=== PATIENT | male | born 1945 | race Caucasian/White ===

== ENCOUNTER 2017-03-23 13:11 | Inpatient (IN) | payer MEDICARE, BC ==
[~2017-03-23] VITALS: Ht 172.7 cm; Wt 73.5 kg
[2017-03-23] MEDS ORDERED: PIPER-TAZ 3.375 GM 50 ML IV STA (13:54)
[2017-03-23] MEDS ORDERED: VANCOMYCIN 1GM/NS 250 ML 250 ML IV STA (13:54)
[2017-03-23] MEDS ORDERED: ONDANSETRON HCL INJ 2 MG/ML VIAL IV PRN (14:15)
[2017-03-23] MEDS ORDERED: HYDROMORPHONE 1MG/1ML INJ IV PRN (14:15)
--- NOTE | 2017-03-23 15:31 | Diagnostic Imaging Report ---
PROCEDURE: A single AP view of the chest. COMPARISON: None. INDICATIONS: PAIN IN RIGHT LEG FINDINGS: Lines/tubes: None. Lungs: The lungs are well inflated and clear. There is no evidence of pneumonia or pulmonary edema. Pleura: There is no pleural effusion or pneumothorax. Heart and mediastinum: The heart and the mediastinum are unremarkable. Atherosclerotic calcification aortic arch. Bones: No acute bony abnormality. IMPRESSION: 1. No acute cardiopulmonary abnormalities. Tacos Couch M.D. Dictated by: Tacos Couch M.D. on 03/23/2017 at 15:38 Electronically approved by: Tacos Couch M.D. on 03/23/2017 at 15:38
[2017-03-23] MEDS: SODIUM CHLORIDE 0.9% 1000ML 1,000 ML IV SCH ×2 (17:00→21:00)
[2017-03-23] MEDS: CLINDAMYCIN PHOS IV SCH ×2 (17:05→21:00)
[2017-03-23] MEDS: SODIUM CHLORIDE 0.9% IV SCH ×2 (17:05→21:00)
[2017-03-23 17:23] LABS: BASOPHILS % 0.4 % (0.0-1.0); EOSINOPHILS # (AUTO) 0.4 (0.0-0.4); EOSINOPHILS % 3.9 % (0.0-6.0); HEMATOCRIT 33.2 % (38.2-49.6); HEMOGLOBIN 11.8 g/dL (14.0-18.0); LYMPHOCYTES # (AUTO) 1.5 (1.0-3.2); LYMPHOCYTES % 14.1 % (18.0-39.1); MEAN CORPUSCULAR HEMOGLOBIN 30.3 pg (28-32); MEAN CORPUSCULAR HGB CONC 35.5 g/dL (31-35); MEAN CORPUSCULAR VOLUME 85.1 fL (81-99); MONOCYTES # (AUTO) 1.1 (0.2-0.8); MONOCYTES % 10.4 % (4.4-11.3); NEUTROPHILS # (AUTO) 7.3 (2.1-6.9); NEUTROPHILS % 70.5 % (38.7-80.0); PLATELET COUNT 202 x10e3/uL (140-360); RED CELL DISTRIBUTION WIDTH 13.4 % (11.7-14.4)
[2017-03-23 17:45] LABS: ALANINE AMINOTRANSFERASE 52 IU/L (0-55); ALBUMIN 3.5 g/dL (3.5-5.0); ALBUMIN/GLOBULIN RATIO 0.7 (0.8-2.0); ALKALINE PHOSPHATASE 125 IU/L (40-150); ANION GAP 16.1 mmol/L (8-16); BLOOD UREA NITROGEN 6 mg/dL (7-26); BUN/CREATININE RATIO 8 (6-25); CALCIUM 9.3 mg/dL (8.4-10.2); CARBON DIOXIDE 23 mmol/L (22-29); CHLORIDE 86 mmol/L (98-107); CREATININE, SERUM 0.77 mg/dL (0.72-1.25); EST GLOMERULAR FILTRATION RATE > 60 ML/MIN (60-); GLUCOSE 100 mg/dL (74-118); POTASSIUM 4.1 mmol/L (3.5-5.1); SODIUM 121 mmol/L (136-145)
[2017-03-23] MEDS ORDERED: VITAMIN D31000 UNIT PO (18:52)
[2017-03-23] MEDS ORDERED: TEMAZEPAM15 MG PO (18:52)
[2017-03-23] MEDS ORDERED: CLINDAMYCIN HC300 MG PO (18:52)
[2017-03-23] MEDS ORDERED: ATORVASTATIN CA20 MG PO (18:52)
[2017-03-23] MEDS ORDERED: LOSARTAN POTAS100 MG PO (18:55)
[2017-03-23] MEDS ORDERED: GLIMEPIRIDE2 MG PO (18:55)
[2017-03-23] MEDS ORDERED: PREDNISONE10 MG PO (18:55)
[2017-03-23] MEDS ORDERED: PIPER-TAZ 3.375 GM 50 ML IV ONE (19:15)
[2017-03-23 19:37] LABS: BILIRUBIN,URINE NEGATIVE (NEGATIVE); CLARITY,URINE CLEAR (CLEAR); COLOR,URINE YELLOW (YELLOW); KETONES,URINE NEGATIVE (NEGATIVE); LEUKOCYTE ESTERASE ,URINE NEGATIVE (NEGATIVE); NITRITE,URINE NEGATIVE (NEGATIVE); URINE UROBILINOGEN 0.2 mg/dL (0.2 - 1)
[2017-03-23 19:41] LABS: PROTEIN,URINE DIPSTICK 2+ (NEGATIVE)
[2017-03-23] MEDS ORDERED: VANCOMYCIN 1GM/NS 250 ML 250 ML IV ONE (19:45)
[2017-03-23 19:48] LABS: MUCUS,URINE FEW (RARE); RBC,URINE 0-5 /HPF (0-5); WBC,URINE (MAN) 0-5 /HPF (0-5)
[2017-03-23] MEDS ORDERED: CLINDAMYCIN PHOS 300MG/2ML VIAL ONE (21:07)
[2017-03-23] MEDS ORDERED: SODIUM CHLORIDE 0.9% 250ML 250 ML ONE (21:07)
[2017-03-23] MEDS ORDERED: LABETALOL HCL IV 5 MG/ML 20ML MDV IV ONE (21:40)
[2017-03-24] VITALS (8 sets, daily range): BP systolic 106–203; BP diastolic 53–95
[2017-03-24] MEDS: CLINDAMYCIN PHOS IV SCH ×2 (00:45→06:38)
[2017-03-24] MEDS: SODIUM CHLORIDE 0.9% IV SCH ×2 (00:45→06:38)
[2017-03-24] MEDS: TEMAZEPAM 15 MG CAP PO SCH ×2 (02:00→22:13)
[2017-03-24] MEDS: SODIUM CHLORIDE 0.9% 1000ML 1,000 ML IV SCH (06:11)
[2017-03-24] MEDS ORDERED: LABETALOL HCL IV 5 MG/ML 20ML MDV IV STA (06:33)
[2017-03-24] MEDS: VANCOMYCIN 1GM/NS 250 ML 250 ML IV SCH ×2 (08:15→20:00)
[2017-03-24] MEDS ORDERED: DEXTROSE 50% SYRINGE 50 ML IV PRN (08:15)
[2017-03-24] MEDS: FAMOTIDINE 20 MG TAB PO SCH ×2 (08:15→16:30)
[2017-03-24] MEDS: LOSARTAN POTASSIUM 100 MG TAB PO SCH (09:00)
[2017-03-24] MEDS ORDERED: GLIMEPIRIDE 2 MG TAB PO SCH (09:00)
[2017-03-24] MEDS ORDERED: LOSARTAN POTASSIUM 100 MG TAB PO SCH (09:00)
[2017-03-24] MEDS: CARVEDILOL 12.5 MG TAB PO SCH ×2 (09:00→17:00)
[2017-03-24 09:13] LABS: BASOPHILS % 0.5 % (0.0-1.0); EOSINOPHILS # (AUTO) 0.3 (0.0-0.4); HEMATOCRIT 29.6 % (38.2-49.6); HEMOGLOBIN 10.6 g/dL (14.0-18.0); LYMPHOCYTES # (AUTO) 0.9 (1.0-3.2); LYMPHOCYTES % 13.8 % (18.0-39.1); MEAN CORPUSCULAR HEMOGLOBIN 30.2 pg (28-32); MEAN CORPUSCULAR HGB CONC 35.8 g/dL (31-35); MEAN CORPUSCULAR VOLUME 84.3 fL (81-99); MONOCYTES # (AUTO) 0.8 (0.2-0.8); MONOCYTES % 12.4 % (4.4-11.3); NEUTROPHILS # (AUTO) 4.5 (2.1-6.9); PLATELET COUNT 158 x10e3/uL (140-360); RED BLOOD COUNT 3.51 x10e6/uL (4.3-5.7); RED CELL DISTRIBUTION WIDTH 13.6 % (11.7-14.4)
[2017-03-24 09:39] LABS: % IRON SATURATION 29 % (15-50); ANION GAP 12.8 mmol/L (8-16); BLOOD UREA NITROGEN 8 mg/dL (7-26); BUN/CREATININE RATIO 11 (6-25); CALCIUM 8.5 mg/dL (8.4-10.2); CARBON DIOXIDE 23 mmol/L (22-29); CHLORIDE 94 mmol/L (98-107); CREATININE, SERUM 0.75 mg/dL (0.72-1.25); EST GLOMERULAR FILTRATION RATE > 60 ML/MIN (60-); GLUCOSE 76 mg/dL (74-118); IRON 80 ug/dL (65-175); POTASSIUM 3.8 mmol/L (3.5-5.1); SODIUM 126 mmol/L (136-145); TOTAL IRON BINDING CAPACITY 274 ug/dL (261-478); TRANSFERRIN 196 mg/dL (174-364)
[2017-03-24 10:01] LABS: FREE T4 (FREE THYROXINE) 0.85 ng/dL (0.8-1.8)
[2017-03-24] MEDS ORDERED: IOPAMIDOL 370 MG/ML 200 ML INFUS..BTL INJ ONE (10:24)
[2017-03-24] MEDS ORDERED: LIDOCAINE HCL 2% LOCAL 20 ML VIAL ONE (10:24)
[2017-03-24] MEDS ORDERED: HEPARIN SOD/SOD CHLORIDE 2,000 ML ONE (10:24)
[2017-03-24] MEDS ORDERED: FENTANYL CITRATE/PF 100MCG/2 ML INJ ONE (10:27)
[2017-03-24] MEDS ORDERED: MIDAZOLAM HCL 2 MG/2 ML VIAL ONE (10:27)
[2017-03-24] MEDS ORDERED: IOPAMIDOL 300MG/ML 100 ML INFUS..BTL IV ONE (10:27)
[2017-03-24] MEDS ORDERED: SODIUM CHLORIDE 0.9% 1000ML 1,000 ML ONE ×2 (10:28→11:50)
--- NOTE | 2017-03-24 10:40 | Consultation ---
DATE OF CONSULTATION: March 23, 2017 CARDIOLOGY CONSULTATION REQUESTING PHYSICIAN: Dr. Rucker. REASON FOR CONSULTATION: Peripheral arterial disease. HISTORY OF PRESENT ILLNESS: This is a 72-year-old male with history of diabetes mellitus, hypertension, hyperlipidemia, peripheral arterial disease, status post prior revascularization of the right lower extremity, and history of CVA who presents with right lower extremity cellulitis. He reports he has had multiple falls in the past and fell 3 weeks prior. Two weeks ago he developed redness and swelling of his right foot for which he was started on p.o. antibiotics, specifically Keflex. His foot felt improved with p.o. antibiotics and he was seen by Dr. Potts who instructed him to present to the ER for further evaluation. He denies any chest pain, shortness of breath, palpitations, edema, orthopnea or PND. REVIEW OF SYSTEMS: Negative except as per HPI. PAST MEDICAL HISTORY: Diabetes mellitus, hypertension, hyperlipidemia, peripheral arterial disease, status post prior revascularization of the right lower extremity 4-6 years ago, history of CVA. He follows with Dr. Ortiz for his cardiac care. 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 ALLERGIES: NO KNOWN DRUG ALLERGIES. MEDICATIONS: Please see MAR. SOCIAL HISTORY: Denies tobacco or illicit drugs. He drinks beer occasionally. FAMILY HISTORY: Noncontributory. PHYSICAL EXAMINATION VITAL SIGNS: Temperature 98.2 degrees, pulse 89, respiratory rate 20, blood pressure 215/86, oxygen saturation 99%. GENERAL: A well-nourished, well-developed man in no acute distress. HEENT: Normocephalic, atraumatic. Pupils are equal. No scleral icterus. NECK: Supple. No thyromegaly or cervical lymphadenopathy. No carotid bruits. LUNGS: Clear to auscultation bilaterally. No wheezes or crackles. CARDIOVASCULAR: Normal rate, regular rhythm. No murmurs. Normal S1 and S2. ABDOMEN: Soft and nontender. EXTREMITIES: He has edema with significant erythema of the right forefoot. Dressing is noted on the right third toe. LABORATORY DATA: WBC 10.3, hemoglobin 11.8, hematocrit 33.2, platelets 202,000. The remaining labs are pending. Chest x-ray no acute cardiopulmonary abnormalities. Bilateral lower extremity arterial Doppler significant for elevated velocity in the right common femoral artery suggestive of 50% to 75% focal stenosis. Monophasic waveforms are in the right femoral, popliteal, posterior tibial, anterior tibial and dorsalis pedis arteries suggestive of hemodynamically significant stenosis proximally. There are elevated velocities in the left common femoral artery suggestive of less than 50% focal stenosis. The left posterior tibial artery appears occluded in the mid segment with distal reconstitution. IMPRESSION: 1. Peripheral arterial disease suggested by noninvasive Doppler evaluation. 2. Cellulitis of the right foot. 3. Diabetes mellitus. 4. Hypertension. 5. Hyperlipidemia. 6. History of cerebrovascular accident. RECOMMENDATIONS: Make the patient n.p.o. after midnight. Consent for peripheral angiogram. If his creatinine is reasonable, we will proceed with peripheral angiogram in the morning. Antibiotics per primary service. Resume home medications. Thank you for this consult. We will continue to follow. Job#: [id number]
[2017-03-24] MEDS: INSULIN REGULAR, HUMAN 100 UNIT/1 ML 3ML VIAL SQ SCH ×3 (11:30→21:30)
[2017-03-24] MEDS ORDERED: HEPARIN SOD (PORCINE) 1000 UNIT/ML 30ML ONE (11:49)
[2017-03-24] MEDS ORDERED: VERAPAMIL HCL 2.5 MG/ML 2 ML VIAL ONE (11:57)
[2017-03-24] MEDS: PIPER-TAZ 3.375 GM 50 ML IV SCH ×2 (12:00→18:00)
[2017-03-24] MEDS ORDERED: TAZOBACTAM IV SCH (12:00)
[2017-03-24] MEDS ORDERED: PIPERACILLIN IV SCH (12:00)
[2017-03-24] MEDS ORDERED: PRASUGREL 10 MG TAB ONE (12:15)
[2017-03-24] MEDS ORDERED: ASPIRIN 81 MG CHEW TAB ONE (12:15)
[2017-03-24] MEDS ORDERED: SILVER ANTIMICROBIAL WOUND GEL 45ML TP SCH (16:00)
[2017-03-24] MEDS: GLIMEPIRIDE 2 MG TAB PO SCH (16:30)
--- NOTE | 2017-03-24 16:39 | History and Physical ---
CHIEF COMPLAINT: Diabetic foot ulcer and cellulitis. HISTORY OF PRESENT ILLNESS: Mr. Edwards is a 72-year-old gentleman who was sent in by his auto overhauler for worsening erythema, swelling and diabetic foot ulcer on the right foot. The ulcer is between the 1st and 2nd toe in the web space and the erythema involves most of the foot, particularly in the forefoot. The patient has had some subjective fever and chills with this and has been getting steadily worse for the past couple of weeks. REVIEW OF SYSTEMS: He has had subjective fever and chills. Denies weight loss. Denies sinus congestion or sore throat. Denies chest pain or palpitations. Denies shortness breath, wheezing or cough. Denies abdominal pain, nausea, vomiting or melena. He denies dysuria or flank pain. Denies rash or pruritus. He does have the swelling and erythema of the right foot. He denies joint pain or swelling. He denies bleeding or bruising. Denies headache, vertigo or loss of consciousness. Denies depression, agitation, homicidal or suicidal ideation. PAST MEDICAL HISTORY: Significant for longstanding hypertension, type 2 diabetes, hyperlipidemia, peripheral arterial disease and previous stroke. HOME MEDICATIONS: Losartan 100 mg daily. Glimepiride 2 mg twice daily. Temazepam 15 mg at bedtime. Atorvastatin 40 mg at bedtime. PAST SURGICAL HISTORY: The patient has a history of a fem/pop bypass on the right leg and cholecystectomy and removal of melanoma right ear. ALLERGIES: NO KNOWN DRUG ALLERGIES. FAMILY HISTORY: Remarkable for hypertension and diabetes. SOCIAL HISTORY: The patient is . Kiswahili is his primary language. He does not smoke, drink or use illegal drugs. He is generally independently functioning. PHYSICAL EXAM: PSYCHIATRIC: He is alert and oriented times 3 with normal mood and affect. CONSTITUTIONAL: Has a normal habitus. Is in no acute distress. VITAL SIGNS: Blood pressure 170/80. Pulse 93 and regular. Respiratory rate 19. O2 sat 97%. Temperature 97.7. HEENT: Head is atraumatic. His eyes are anicteric with clear conjunctivae. Ears and nares are without erythema or discharge. Oropharynx is clear. NECK: Is supple with no mass or thyromegaly. LYMPHATIC SYSTEM: He has no palpable cervical, axillary or inguinal adenopathy. CARDIOVASCULAR: Heart has a regular rate an d rhythm without murmur or extra heart sounds. He has no carotid bruit. He has no peripheral edema. Weak dorsal pedal pulses. RESPIRATORY: Lungs are clear to auscultation and percussion with normal respiratory effort. GASTROINTESTINAL: Abdomen is soft without organomegaly, masses or tenderness. He has normal bowel sounds present. CUTANEOUS: Warm and dry to touch. He has no rash or skin breakdown. MUSCULOSKELETAL: Some erythema of the right foot as well as a small superficial ulceration between the 1st and 2nd toe in the web space. He has no calf tenderness. NEUROLOGIC: Exam is nonfocal with intact cranial nerves and no motor or sensory deficits. DIAGNOSTIC STUDIES: His chest x-ray shows no acute disease. UA is clear. BNP is 137.0. TSH 1.770. T4 0.85. All normal. Iron 80, TIBC 274. Percent saturation 29. Transferrin 196, again all normal. CBC shows a white count of 6.47 with a normal differential. Hemoglobin 10.6, hematocrit 29.6 and platelet count 158,000. His chemistry profile shows sodium 121. The rest of his electrolytes are normal. CO2 23. Creatinine 0.77. BUN 6. Glucose 100. Anion gap is 16.1. Calcium is 9.3. His AST is slightly elevated at 48. The rest of his transaminases, bilirubin and alkaline phos are all normal. IMPRESSION AND PLAN 1. Cellulitis/Trinh grade 2 diabetic foot ulcer, right foot. Patient will be started on IV vancomycin and Zosyn. After obtaining cultures of the diabetic foot ulcer, we will order wound care and podiatry has been consulted for management. 2. Type 2 diabetes with diabetic foot ulcer complicated by peripheral arterial disease. The patient has had arterial Dopplers which were abnormal. Cardiology has been consulted. The patient will be going to the [facility] for angiography and possible intervention. He is on Amaryl plus sliding scale insulin. 3. Hypertension. Poorly controlled. Will continue the patient's losartan. Will add Coreg 25 twice daily and p.r.n. IV hydralazine for blood pressure control. 4. For prophylaxis the patient will be on Pepcid for GI prophylaxis. Job#: [id number]
[2017-03-24] MEDS ORDERED: BETAMETHASONE/CLOTRIMAZOLE CR 15 GM TUBE TOP SCH ×2 (17:00)
[2017-03-24] MEDS: HYDRALAZINE HCL 20 MG/ML VIAL IV PRN (17:30)
[2017-03-24] MEDS: ATORVASTATIN 40 MG TAB PO SCH (22:12)
[2017-03-24] MEDS: BETAMETHASONE/CLOTRIMAZOLE CR 15 GM TUBE TOP SCH (22:13)
[2017-03-24] MEDS: SILVER ANTIMICROBIAL WOUND GEL 45ML TP SCH (22:30)
[2017-03-25] VITALS (7 sets, daily range): BP systolic 107–224; BP diastolic 61–92
[2017-03-25] MEDS: PIPER-TAZ 3.375 GM 50 ML IV SCH ×4 (05:24→17:27)
[2017-03-25 07:23] LABS: BASOPHILS % 0.5 % (0.0-1.0); EOSINOPHILS # (AUTO) 0.2 (0.0-0.4); EOSINOPHILS % 3.3 % (0.0-6.0); HEMATOCRIT 26.8 % (38.2-49.6); HEMOGLOBIN 9.3 g/dL (14.0-18.0); LYMPHOCYTES # (AUTO) 0.7 (1.0-3.2); LYMPHOCYTES % 12.8 % (18.0-39.1); MEAN CORPUSCULAR HEMOGLOBIN 29.9 pg (28-32); MEAN CORPUSCULAR HGB CONC 34.7 g/dL (31-35); MEAN CORPUSCULAR VOLUME 86.2 fL (81-99); MONOCYTES # (AUTO) 0.8 (0.2-0.8); MONOCYTES % 14.4 % (4.4-11.3); NEUTROPHILS % 68.5 % (38.7-80.0); PLATELET COUNT 177 x10e3/uL (140-360); RED BLOOD COUNT 3.11 x10e6/uL (4.3-5.7)
[2017-03-25] MEDS: GLIMEPIRIDE 2 MG TAB PO SCH ×2 (07:30→16:30)
[2017-03-25] MEDS: FAMOTIDINE 20 MG TAB PO SCH ×2 (07:30→16:30)
[2017-03-25] MEDS: INSULIN REGULAR, HUMAN 100 UNIT/1 ML 3ML VIAL SQ SCH ×4 (07:30→21:00)
[2017-03-25 07:55] LABS: ANION GAP 10.7 mmol/L (8-16); BLOOD UREA NITROGEN 10 mg/dL (7-26); BUN/CREATININE RATIO 11 (6-25); CALCIUM 8.3 mg/dL (8.4-10.2); CARBON DIOXIDE 23 mmol/L (22-29); CHLORIDE 100 mmol/L (98-107); CREATININE, SERUM 0.88 mg/dL (0.72-1.25); EST GLOMERULAR FILTRATION RATE > 60 ML/MIN (60-); GLUCOSE 68 mg/dL (74-118); MAGNESIUM 1.6 MG/DL (1.3-2.1); POTASSIUM 3.7 mmol/L (3.5-5.1); SODIUM 130 mmol/L (136-145)
[2017-03-25] MEDS: VANCOMYCIN 1GM/NS 250 ML 250 ML IV SCH ×2 (08:15→20:15)
[2017-03-25] MEDS: CARVEDILOL 12.5 MG TAB PO SCH ×2 (08:17→17:00)
[2017-03-25] MEDS: LOSARTAN POTASSIUM 100 MG TAB PO SCH (08:17)
[2017-03-25] MEDS: BETAMETHASONE/CLOTRIMAZOLE CR 15 GM TUBE TOP SCH ×2 (08:18→22:04)
[2017-03-25] MEDS: SILVER ANTIMICROBIAL WOUND GEL 45ML TP SCH (08:18)
[2017-03-25] MEDS: CLOPIDOGREL BISULFATE 75 MG TAB PO SCH (09:35)
[2017-03-25] MEDS: ASPIRIN 325 MG TAB PO SCH (09:35)
[2017-03-25] MEDS ORDERED: FUROSEMIDE INJ 10 MG/ML 2 ML VIAL IV ONE (11:00)
[2017-03-25] MEDS: HYDRALAZINE HCL 20 MG/ML VIAL IV PRN (11:21)
[2017-03-25] MEDS: ATORVASTATIN 40 MG TAB PO SCH (21:18)
[2017-03-25] MEDS: TEMAZEPAM 15 MG CAP PO SCH (21:18)
[2017-03-26] VITALS (7 sets, daily range): BP systolic 119–196; BP diastolic 59–81
[2017-03-26] MEDS: PIPER-TAZ 3.375 GM 50 ML IV SCH ×4 (01:18→17:04)
[2017-03-26] MEDS: HYDRALAZINE HCL 20 MG/ML VIAL IV PRN ×2 (01:18→14:41)
[2017-03-26] MEDS: GLIMEPIRIDE 2 MG TAB PO SCH ×2 (07:30→17:00)
[2017-03-26] MEDS: INSULIN REGULAR, HUMAN 100 UNIT/1 ML 3ML VIAL SQ SCH ×4 (07:30→21:10)
[2017-03-26] MEDS: FAMOTIDINE 20 MG TAB PO SCH ×2 (07:30→16:30)
[2017-03-26 07:39] LABS: BASOPHILS % 0.5 % (0.0-1.0); EOSINOPHILS # (AUTO) 0.3 (0.0-0.4); EOSINOPHILS % 3.7 % (0.0-6.0); HEMOGLOBIN 9.5 g/dL (14.0-18.0); LYMPHOCYTES # (AUTO) 0.7 (1.0-3.2); LYMPHOCYTES % 9.2 % (18.0-39.1); MEAN CORPUSCULAR HEMOGLOBIN 30.1 pg (28-32); MEAN CORPUSCULAR HGB CONC 35.2 g/dL (31-35); MEAN CORPUSCULAR VOLUME 85.4 fL (81-99); MONOCYTES % 13.5 % (4.4-11.3); NEUTROPHILS # (AUTO) 5.5 (2.1-6.9); NEUTROPHILS % 72.6 % (38.7-80.0); PLATELET COUNT 150 x10e3/uL (140-360); RED BLOOD COUNT 3.16 x10e6/uL (4.3-5.7); RED CELL DISTRIBUTION WIDTH 13.6 % (11.7-14.4)
--- NOTE | 2017-03-26 07:54 | Progress Note ---
DATE: CARDIOLOGY PROGRESS NOTE SUBJECTIVE: Patient endorses pain in the right calf and also the left upon exertion. Denies any chest pain or shortness of breath. PHYSICAL EXAMINATION VITAL SIGNS: Temperature 98.8, pulse 83, respiratory rate 16, blood pressure 181/75, and oxygen saturation 96% on room air. CARDIOVASCULAR MEDICATIONS 1. Carvedilol 25 mg p.o. b.i.d. 2. Hydralazine 10 mg q.4 h. p.r.n. for hypertension. 3. Plavix 75 mg p.o. daily. 4. Aspirin 81 mg p.o. daily. 5. Losartan 10 mg p.o. daily. 6. Atorvastatin 40 mg p.o. at night. LABS: WBC 5.78, hemoglobin 9.3, hematocrit 26.8, and platelets 177,000. Sodium 130, potassium 3.7, BUN 10, creatinine 0.88, glucose 68. Calcium 8.3. BNP 173.5. Glucose 117. IMPRESSION 1. Peripheral arterial disease: Status post right stent placement. 2. Cellulitis of the right foot. 3. Diabetes mellitus. 4. Hypertension. 5. Hyperlipidemia. 6. History of cerebrovascular accident. RECOMMENDATIONS: Continue with the above list of cardiac medications, especially dual antiplatelet therapy. Continue to monitor the patient closely. Antibiotics per primary team. Pain management per primary team. Will continue to follow closely. Recommendations to follow. DICTATED BY OLAF FRAIRE NP Job#: [id number] [place]
[2017-03-26 08:10] LABS: ANION GAP 14.1 mmol/L (8-16); BLOOD UREA NITROGEN 11 mg/dL (7-26); BUN/CREATININE RATIO 13 (6-25); CALCIUM 8.6 mg/dL (8.4-10.2); CARBON DIOXIDE 21 mmol/L (22-29); CHLORIDE 94 mmol/L (98-107); CREATININE, SERUM 0.85 mg/dL (0.72-1.25); EST GLOMERULAR FILTRATION RATE > 60 ML/MIN (60-); POTASSIUM 3.1 mmol/L (3.5-5.1); SODIUM 126 mmol/L (136-145)
[2017-03-26 08:31] LABS: GLUCOSE 57 mg/dL (74-118)
[2017-03-26] MEDS: VANCOMYCIN 1GM/NS 250 ML 250 ML IV SCH (09:00)
[2017-03-26] MEDS: BETAMETHASONE/CLOTRIMAZOLE CR 15 GM TUBE TOP SCH ×2 (09:00→21:10)
[2017-03-26] MEDS: SILVER ANTIMICROBIAL WOUND GEL 45ML TP SCH (09:00)
[2017-03-26] MEDS: LOSARTAN POTASSIUM 100 MG TAB PO SCH (09:00)
[2017-03-26] MEDS: CARVEDILOL 12.5 MG TAB PO SCH ×2 (09:00→17:00)
[2017-03-26] MEDS: CLOPIDOGREL BISULFATE 75 MG TAB PO SCH (09:00)
[2017-03-26] MEDS: ASPIRIN 325 MG TAB PO SCH (09:00)
[2017-03-26] MEDS: HYDRALAZINE HCL 25 MG TAB PO SCH ×2 (15:00→21:09)
--- NOTE | 2017-03-26 15:54 | Consultation ---
DATE OF CONSULTATION: March 26, 2017 SUBJECTIVE: This is a 72-year-old male who was seen at bedside this morning. He is resting comfortably. At the moment, denies nausea, vomiting, fever, chills, chest pain, or shortness of breath. He relates to having calf pain yesterday while walking and felt cramping while walking. Patients relates to no calf pain while at rest. No other pedal complaints at this time. PHYSICAL EXAMINATION GENERAL: Alert and oriented times 3. No apparent distress. VITAL SIGNS: Today, temperature 98.9, heart rate 76, respiratory rate 16, blood pressure 119/59, pulse ox 96% on room air. LOWER EXTREMITY PHYSICAL EXAMINATION VASCULAR: Dorsalis pedis and posterior tibial pulses are faintly palpable. Capillary refill time is delayed to all the digits, specifically the right 2nd digit. There does appear to be a mottled appearance with a superficial scab ulceration to the distal aspect of the right 2nd digit. Upon examining for capillary refill time, it is delayed approximately 5 seconds. The erythema and edema to the right foot appears improved. The foot is warmer to the touch. NEUROLOGICAL: Sensation is diminished to light touch bilateral. MUSCULOSKELETAL: Negative pain on palpation. Deferred at this time. Mild pain on palpation to bilateral calves. Negative pain on palpation to the calf with dorsiflexion of the ankle. DERMATOLOGICAL: Superficial scab ulceration is noted to the distal aspect of the patient's right 2nd digit over the dorsal aspect of the distal interphalangeal joint. The patient's right 2nd digit does have a mottled appearance. LABS: White blood cell count is 7.5, hemoglobin 9.5, hematocrit 27, and platelet count is 150,000. Neutrophils percent 72.6. Sodium 126, potassium 3.1, chloride 94, CO2 21, BUN 11, creatinine 0.85, glucose 57. Vanc trough is 15.3. ASSESSMENT 1. Peripheral vascular disease: Two days status post right stent placement. 2. Right foot cellulitis. 3. Type 2 diabetes with peripheral neuropathy. 4. History of cerebrovascular accident. PLAN: The patient was seen and evaluated. Discussed condition and treatment options with the patient in detail. At this time, will continue local wound care with Hydrogel dressing changes daily to the right foot. Will continue to monitor the vascularity. Discussed with the patient that there is improvement to the vascularity of his right foot. However, the right 2nd digit is still concerning with delayed capillary refill time and cyanosis. Discussed with the patient will continue cardiac medications per Dr. Avila. Will continue to monitor and will continue IV antibiotics. The podiatry service will continue to follow. Job#: [id number] RIP
[2017-03-26] MEDS: TEMAZEPAM 15 MG CAP PO SCH (21:09)
[2017-03-26] MEDS: ATORVASTATIN 40 MG TAB PO SCH (21:09)
[2017-03-27] MEDS: PIPER-TAZ 3.375 GM 50 ML IV SCH ×4 (00:11→17:59)
[2017-03-27 00:23] VITALS: BP 151/72
[2017-03-27 05:00] VITALS: BP 153/70
--- NOTE | 2017-03-27 06:45 | Progress Note ---
DATE: CARDIOLOGY PROGRESS NOTE SUBJECTIVE: Patient is without any complaints today. He states that the pain in his right leg is improving as far as his wound. PHYSICAL EXAMINATION VITAL SIGNS: Temperature 97.2, pulse 75, respiratory rate 17, blood pressure 180/80, and oxygen saturation 97% on room air. GENERAL: Alert and oriented times 3. Resting comfortably in bed. Does not appear to be in acute distress. LUNGS: Diminished breath sounds in posterior lower lobes. Otherwise, clear to auscultation. CARDIOVASCULAR: Regular rate and rhythm. Normal S1 and S2. Systolic ejection murmur present, 05/30. ABDOMEN: Soft and nontender. Normoactive bowel sounds. EXTREMITIES: Lower extremities with 1+ pedal pulses of right lower extremity with wound to right toes. Discoloration and petechiae noted of the right foot. CARDIOVASCULAR MEDICATIONS 1. Hydralazine 10 mg q.4 h. p.r.n. IV for hypertension. 2. Plavix 75 mg p.o. daily. 3. Aspirin 81 mg p.o. daily. 4. Coreg 25 mg p.o. b.i.d. 5. Losartan 100 mg p.o. daily. 6. Atorvastatin 40 mg p.o. at night. 7. Hydralazine 25 mg p.o. daily. LABS: WBC 7.54, hemoglobin 9.5, hematocrit 27, and platelets 150,000. Sodium 126, potassium 3.6, glucose 57, BUN 11, creatinine 0.85, GFR greater than 60. BNP 195.3. IMPRESSION 1. Peripheral arterial disease: Status post right stent placement. 2. Cellulitis of the right foot. 3. Diabetes mellitus. 4. Hypertension. 5. Hyperlipidemia. 6. History of cerebrovascular accident. RECOMMENDATIONS: Continue the above list of cardiac medications, especially dual antiplatelet therapy. Continue to monitor the patient closely. Maintain antimicrobial therapy per primary team. Pain management per primary team. Thank you for this consultation. Will continue to follow. DICTATED BY OLAF FRAIRE NP Job#: [id number] [place]
[2017-03-27] MEDS: INSULIN REGULAR, HUMAN 100 UNIT/1 ML 3ML VIAL SQ SCH ×4 (07:30→21:00)
[2017-03-27 08:00] VITALS: BP 139/63
[2017-03-27] MEDS: GLIMEPIRIDE 2 MG TAB PO SCH ×2 (09:50→16:47)
[2017-03-27] MEDS: HYDRALAZINE HCL 25 MG TAB PO SCH ×3 (09:50→22:26)
[2017-03-27] MEDS: FAMOTIDINE 20 MG TAB PO SCH ×2 (09:50→16:47)
[2017-03-27] MEDS: VANCOMYCIN 1GM/NS 250 ML 250 ML IV SCH (09:50)
[2017-03-27] MEDS: CLOPIDOGREL BISULFATE 75 MG TAB PO SCH (09:51)
[2017-03-27] MEDS: ASPIRIN 81 MG ENTERIC COATED PO SCH (09:51)
[2017-03-27] MEDS: LOSARTAN POTASSIUM 100 MG TAB PO SCH (09:51)
[2017-03-27] MEDS: CARVEDILOL 12.5 MG TAB PO SCH ×2 (09:51→16:47)
[2017-03-27] MEDS ORDERED: SODIUM CHLORIDE 0.9% 250ML 250 ML ONE (10:01)
[2017-03-27 12:00] VITALS: BP 146/63
[2017-03-27] MEDS: HYDROCHLOROTHIAZIDE 25 MG TAB PO SCH (12:31)
[2017-03-27] MEDS: BETAMETHASONE/CLOTRIMAZOLE CR 15 GM TUBE TOP SCH ×2 (12:31→22:27)
[2017-03-27] MEDS: SILVER ANTIMICROBIAL WOUND GEL 45ML TP SCH (13:00)
[2017-03-27 16:00] VITALS: BP 197/81
[2017-03-27 20:00] VITALS: BP 178/87
--- NOTE | 2017-03-27 21:25 | Progress Note ---
DATE: March 27, 2017 CARDIOLOGY PROGRESS NOTE SUBJECTIVE: The patient denies chest pain or shortness of breath. He is reporting stinging in his right foot after walking with physical therapy. OBJECTIVE VITAL SIGNS: Temperature 97.4 degrees, pulse 73, respiratory rate 19, blood pressure 197/81. GENERAL: Awake, alert and in no acute distress. LUNGS: Clear to auscultation bilaterally. No wheezes or crackles. CARDIOVASCULAR: Normal rate, regular rhythm. No murmurs. Normal S1 and S2. ABDOMEN: Soft and nontender. EXTREMITIES: He continues to have significant discoloration of his right third digit. CARDIAC MEDICATIONS: 1. Hydralazine 50 mg p.o. t.i.d. 2. Carvedilol 25 mg p.o. b.i.d. 3. Hydrochlorothiazide 25 mg p.o. daily. 4. Aspirin 81 mg p.o. daily. 5. Plavix 75 mg p.o. daily. 6. Losartan 100 mg p.o. daily. 7. Atorvastatin 40 mg p.o. nightly. LABORATORY DATA: None today. IMPRESSION: 1. Peripheral arterial disease status post revascularization of the right lower extremity. 2. Cellulitis of the right foot. 3. Diabetes mellitus. 4. Hypertension. 5. Hyperlipidemia. 6. History of cerebrovascular accident. RECOMMENDATIONS: Continue current cardiac medications including dual antiplatelet therapy. Antibiotics per primary service. Wound care per podiatry. Thank you for this consult. We will continue to follow. Job#: [id number]
[2017-03-27] MEDS: TEMAZEPAM 15 MG CAP PO SCH (22:26)
[2017-03-27] MEDS: ATORVASTATIN 40 MG TAB PO SCH (22:26)
[2017-03-28] VITALS: BP 142/65
[2017-03-28] MEDS: PIPER-TAZ 3.375 GM 50 ML IV SCH ×4 (00:34→17:57)
[2017-03-28 04:00] VITALS: BP 146/74
[2017-03-28 08:00] VITALS: BP 166/70
[2017-03-28] MEDS: FAMOTIDINE 20 MG TAB PO SCH ×2 (09:37→17:56)
[2017-03-28] MEDS: ASPIRIN 81 MG ENTERIC COATED PO SCH (09:37)
[2017-03-28] MEDS: INSULIN REGULAR, HUMAN 100 UNIT/1 ML 3ML VIAL SQ SCH ×4 (09:37→20:55)
[2017-03-28] MEDS: CLOPIDOGREL BISULFATE 75 MG TAB PO SCH (09:37)
[2017-03-28] MEDS: VANCOMYCIN 1GM/NS 250 ML 250 ML IV SCH (09:37)
[2017-03-28] MEDS: GLIMEPIRIDE 2 MG TAB PO SCH ×2 (09:37→17:56)
[2017-03-28] MEDS: HYDROCHLOROTHIAZIDE 25 MG TAB PO SCH (09:37)
[2017-03-28] MEDS: HYDRALAZINE HCL 25 MG TAB PO SCH ×3 (09:38→20:54)
[2017-03-28] MEDS: LOSARTAN POTASSIUM 100 MG TAB PO SCH (09:38)
[2017-03-28] MEDS: BETAMETHASONE/CLOTRIMAZOLE CR 15 GM TUBE TOP SCH ×2 (09:38→20:55)
[2017-03-28] MEDS: CARVEDILOL 12.5 MG TAB PO SCH ×2 (09:38→17:57)
[2017-03-28 12:00] VITALS: BP 190/92
[2017-03-28] MEDS: HYDRALAZINE HCL 20 MG/ML VIAL IV PRN ×2 (12:00→17:55)
[2017-03-28 16:00] VITALS: BP 187/84
[2017-03-28] MEDS ORDERED: NIFEDIPINE CR 30 MG TAB PO ONE (18:15)
[2017-03-28] MEDS ORDERED: SILVASORB480 ML TP (20:13)
[2017-03-28] MEDS ORDERED: AMARYL2 MG PO (20:13)
[2017-03-28] MEDS ORDERED: PROBIOTIC & AC1 EACH PO (20:13)
[2017-03-28] MEDS ORDERED: CLOTRIMAZOLE-BE15 GM TOP (20:13)
[2017-03-28] MEDS ORDERED: ASPIRIN EC81 MG PO (20:13)
[2017-03-28] MEDS ORDERED: COREG12.5 MG PO (20:13)
[2017-03-28] MEDS ORDERED: NIFEDIPINE ER30 M1 PO (20:13)
[2017-03-28] MEDS ORDERED: ESIDRIX25 MG PO (20:13)
[2017-03-28] MEDS ORDERED: HYDRALAZINE HCL25 MG PO (20:13)
[2017-03-28] MEDS ORDERED: PLAVIX75 MG PO (20:13)
--- NOTE | 2017-03-28 20:24 | Progress Note ---
SUBJECTIVE: This is a 72-year-old male seen at bedside this morning. He is resting comfortably. Denies nausea, vomiting, fever, chills, chest pain, or shortness of breath. He relates to ambulating around the jamil with no pain to his calves today. He is 4 days status post right lower extremity stent placement. No new pedal complaints at this time. PHYSICAL EXAMINATION GENERAL: Alert and oriented x3, in no apparent distress. VITAL SIGNS: Today, temperature is 98.7, heart rate 85, respiratory rate 19, blood pressure 166/70, and pulse ox is 96% on room air. FOCUSED LOWER EXTREMITY PHYSICAL EXAMINATION VASCULAR: Dorsalis pedis is faintly palpable at +1. Posterior tibial pulse is faintly palpable at +1. Capillary refill time is delayed to the digits, specifically the right 2nd digit; however, the 2nd digit appears to be improved over the past 2 weeks. There is a dry stable eschar over the dorsal aspect of the digit; however, improvement is noted in vascularity. The digit no longer appears mottled and cyanotic. NEUROLOGICAL: Sensation is diminished to light touch bilateral. MUSCULOSKELETAL: Negative pain on palpation. Otherwise, deferred at this time. DERMATOLOGICAL: Superficial ulceration is noted at the distal aspect of the patient's right 2nd digit over the distal interphalangeal joint. The erythema has improved. Edema has improved. Mottling and cyanosis have improved as well. LABS: White blood cell count 7.5, hemoglobin 9.5, hematocrit 27.0, and platelet count 150; these are from 03/26/2017. ASSESSMENT 1. Peripheral vascular disease, 4 days status post right lower extremity stent placement. 2. Cellulitis. 3. Type 2 diabetes. 4. Peripheral neuropathy. 5. History of cerebrovascular accident. PLAN: Patient was seen and evaluated. Discussed condition and treatment options with patient in detail. Continue local wound care with Hydrogel dressing changes daily to the right foot. Vascularity does appear improved with less cyanosis and mottling to the right 2nd digit. Patient is stable for discharge per the podiatry service. Would recommend close followup within 3 to 5 days of discharge for local wound care. The podiatry service will continue to monitor as an inpatient. Job#: [id number] SAK
[2017-03-28] MEDS ORDERED: ULTRAM50 MG PO (20:48)
[2017-03-28] MEDS ORDERED: COMPETE1 EACH PO (20:53)
[2017-03-28] MEDS ORDERED: OS-CAL 500+D T1 EACH PO (20:53)
[2017-03-28] MEDS ORDERED: MAGNESIUM OXID400 MG PO (20:53)
[2017-03-28] MEDS ORDERED: VITAMIN C500 M2 PO (20:53)
[2017-03-28] MEDS ORDERED: ZINC SULFATE220 MG PO (20:53)
[2017-03-28] MEDS: TEMAZEPAM 15 MG CAP PO SCH (20:54)
[2017-03-28] MEDS: ATORVASTATIN 40 MG TAB PO SCH (20:54)
--- NOTE | 2017-03-28 22:29 | Progress Note ---
DATE: March 28, 2017 CARDIOLOGY PROGRESS NOTE SUBJECTIVE: No chest pain or shortness of breath. OBJECTIVE VITAL SIGNS: Temperature 97.5, heart rate 72, respiratory rate 18, blood pressure of 187/74, O2 sat 98%. GENERAL: No acute distress. Alert. NECK: No JVD. CHEST: Clear to auscultation. CARDIOVASCULAR: Regular rate and rhythm. Normal S1 and S2. No S3 or S4. ABDOMEN: Soft. EXTREMITIES: No edema. Right 3rd digit discoloration. CARDIOVASCULAR MEDICATIONS 1. Carvedilol 25 mg b.i.d. 2. Hydralazine 30 mg IV q.4 h p.r.n. and 50 mg t.i.d. p.o. 3. Losartan 100 mg daily. 4. Aspirin 81 mg daily. 5. Hydrochlorothiazide 25 mg daily. 6. Clopidogrel 75 daily. 7. Atorvastatin 20 mg nightly. 8. Vancomycin IV. 9. Nifedipine extended release 30 mg daily. STUDIES: Reviewed. For today, glucose 189. ASSESSMENT 1. Peripheral artery disease, status post revascularization to right lower extremity. 2. Right foot cellulitis. 3. Diabetes mellitus. 4. Hypertension. 5. Dyslipidemia. 6. History of cerebrovascular accident. RECOMMENDATIONS: Dual antiplatelet therapy. Continue current cardiovascular medications. Continue to monitor progression of abnormal findings. Up titrate antihypertensives. Job#: [id number] CQ
--- NOTE | 2017-03-29 05:38 | Discharge Summary ---
HISTORY OF PRESENT ILLNESS: Mr. Edwards is a 72-year-old gentleman who was originally sent in by his community ambassador for worsening erythema, swelling and diabetic foot ulcer on the right foot. The foot ulcer is between the 1st and 2nd toe in the web space, and erythema involved most of the foot particularly in the forefoot. The patient had some subjective fever and chills with this, and had been getting steadily worse for 2 weeks prior to admission. PAST MEDICAL HISTORY: Significant for long-standing hypertension, type 2 diabetes mellitus, hyperlipidemia, peripheral arterial disease, and previous stroke. HOME MEDICATIONS: Included losartan, glimepiride, temazepam, and atorvastatin. 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 ALLERGIES: NO KNOWN ALLERGIES. ADMITTING DIAGNOSES 1. Cellulitis/Trinh grade 2 diabetic foot ulcer, right foot. 2. Type 2 diabetes mellitus with diabetic foot ulcer complicated by peripheral arterial disease. 3. Hypertension. DISCHARGE DIAGNOSES 1. Cellulitis/Trinh grade 2 diabetic foot ulcer, right foot, status post right lower extremity stent placement on March 24, 2017. 2. Type 2 diabetes with diabetic foot ulcer complicated by peripheral arterial disease. 3. Hypertension. On admission, blood pressure 170/80, temperature 97.7. Chest x-ray had been negative. UA was clear. B-type naturetic peptide 137. TSH 1.77. Iron 80, TIBC 274, and percent saturation 29. Transferrin 196. CBC showed a white blood cell count of 6.47 with normal differential. Hemoglobin 10.6, hematocrit 29.6 and platelet count of 158,000. Chemistry showed a sodium of 121 with the rest of the electrolytes within normal limits. CO2 23, creatinine 0.77, BUN 6, glucose 100, anion gap 16.1. Calcium 9.3. AST slightly elevated at 48. The patient had a bilateral lower extremity arterial ultrasound, which showed monophasic wave forms bilaterally. There was near occlusion on the right lower extremity with possible evidence of significant arterial stenosis in the USED CAR RENOVATOR, SFA, SUPERVISOR TELEPHONE INFORMATION, and ALEXANDREA. In the left lower extremity, there was evidence of arterial disease without significant arterial stenosis in the USED CAR RENOVATOR and possible evidence of significant arterial stenosis in the left SUPERVISOR TELEPHONE INFORMATION. That arterial ultrasound was done on March 23, 2017. Dr. Avila with cardiology was consulted. Dr. Potts with podiatry was consulted. Per cardiology consultation, the patient has a history of CVA. The patient reported that he had multiple falls in the past, and fell 3 weeks prior. He had been given p.o. Keflex previously, and his foot felt improved with p.o. antibiotics. He was seen by Dr. Potts, and instructed to go to the ER for further evaluation. The patient was placed on IV vancomycin and Zosyn, and the wound was cultured on March 25, 2017. The wound culture was negative. Amaryl and sliding scale insulin was continued for the diabetes. On March 26, 2017, sodium was 126, potassium 3.1, chloride 94, CO2 21, BUN 11, creatinine 0.85, GFR greater than 60, glucose 57. WBC 7.54, hemoglobin 9.5, hematocrit 27, and platelets 150,000. Neutrophils 72.6. Blood cultures were negative. Today, the patient reports 2 diarrheal stools, which were not foul-smelling. His blood pressure has been elevated with blood pressure of 197/81 yesterday. Today, 146/74, 166/70, 190/92, and 187/74. The RN reports diarrheal stools yesterday and today. However, the patient states he only had diarrhea today. The patient has been anxious and wanting to leave today, and contributes his hypertension and diarrhea to that. Intake and output 1440 mL in and 1000 mL out. PHYSICAL EXAMINATION VITALS: Temperature 97.5, heart rate 73, blood pressure 187/74, respirations 20, and oxygen saturation 99%. GENERAL: No acute distress. Lying supine in bed. His is at the bedside. LUNGS: Clear to auscultation. HEENT: Extraocular eye movements intact. NECK: Supple. CARDIOVASCULAR: S1 and S2. Regular rate and rhythm. No murmurs. ABDOMEN: Bowel sounds positive. Soft. EXTREMITIES: Without pitting edema. No signs or symptoms of DVT. Right lower extremity with erythema at the foot between the 1st and 2nd toe. Mild cellulitis and appears to be improving. NEUROLOGICAL: GCS 15 and nonfocal. Fingerstick blood glucose levels today 145, 189. Vancomycin trough level on March 25, 2017, was 15.3. The patient will be provided with prescription for probiotics at home. Case was discussed with Dr. Schmidt. The patient will not require antibiotics. An order for case management consult for wound care will be put in today, and followed up by case management tomorrow. The patient has already been advised to follow up with podiatry and see his PCP, Dr. Schmidt, within 1-2 weeks. Instead of a cardiac diet will ask him to start a diabetic diet. ACTIVITY LEVEL: As tolerated. FOLLOWUP: Cardiology as directed. DICTATED BY MARLI WEBBER NP VINCENT SCHMIDT MD Job#: [id number] [place]
[2017-03-29] MEDS ORDERED: NIFEDIPINE CR 30 MG TAB PO SCH ×2 (09:00)
[2017-05-02] MEDS ORDERED: CLINDAMYCIN HC150 MG PO (17:17)
--- NOTE | 2017-05-17 17:43 | Operative Report ---
DATE OF PROCEDURE: March 24, 2017 INDICATIONS: Peripheral arterial disease with claudication. Access obtained in the left femoral artery. A 6-Malay sheath was placed. Abdominal aortogram demonstrated mildly calcified abdominal aorta and iliacs bilaterally. The sheath was then advanced from the left femoral artery to the right superficial femoral artery. Complete occlusion of the right femoral artery was noted with 2 vessel runoff to the right foot with intact plantar arch. A decision was made to intervene on the right femoral artery. The sheath was exchanged to a 45 cm sheath advanced to the left from the right superficial femoral artery. The lesion was crossed using a glidewire. Orbital atherectomy with a 2.0 mm solid crown was performed. Drug-coated balloon angioplasty with 6 mm balloon was performed. Excellent 2 vessel runoff to the right and left foot. Left groin sheath secured in place with removal under manual pressure. Patient was observed in the hospital. Job#: [id number]
== END 2017-03-28 22:55 | disposition home or self-care (01) | DRG 253 ==
LOC: ER 13:11 → ERHOLD 17:46 → MED/SURG2 03-24 00:27
PROVIDERS: ADMIT Internal Medicine; ATTEND Internal Medicine
PROC: B41D1ZZ Fluoroscopy of Aorta and Bilateral Lower Extremity Arteries using Low Osmolar Contrast (ICD-10-PCS; principal; 2017-03-24)
PROC: 047K3ZZ Dilation of Right Femoral Artery, Percutaneous Approach (ICD-10-PCS; 2017-03-24)
PROC: 04CK3ZZ Extirpation of Matter from Right Femoral Artery, Percutaneous Approach (ICD-10-PCS; 2017-03-24)
DX: E11.51 Type 2 diabetes mellitus with diabetic peripheral angiopathy without gangrene (principal); E87.1 Hypo-osmolality and hyponatremia; L97.512 Non-pressure chronic ulcer of other part of right foot with fat layer exposed; I70.25 Atherosclerosis of native arteries of other extremities with ulceration; Z91.81 History of falling; I10 Essential (primary) hypertension; Z86.73 Personal history of transient ischemic attack (TIA), and cerebral infarction without residual deficits; R19.7 Diarrhea, unspecified; I73.9 Peripheral vascular disease, unspecified; L98.493 Non-pressure chronic ulcer of skin of other sites with necrosis of muscle
CPT/HCPCS: 36140; 36415; 71010; 75630; 77002; 80048; 80053; 80202; 81001; 82948; 83540; 83735; 83880; 84439; 84443; 84466; 85025; 87040; 87071; 87086; 87205; 92924; 93005; 93925; 96360; 96365; C1769; J0360; J1644; J1940; J2001; J2250; J2543; J3370; J7030; J7050; Q9967

== ENCOUNTER 2017-05-03 06:28 | Observation (INO) | payer MEDICARE, BC ==
[2017-05-02 12:45] LABS: BASOPHILS % 0.3 % (0.0-1.0); EOSINOPHILS # (AUTO) 0.2 (0.0-0.4); EOSINOPHILS % 1.2 % (0.0-6.0); HEMATOCRIT 30.3 % (38.2-49.6); HEMOGLOBIN 10.8 g/dL (14.0-18.0); LYMPHOCYTES # (AUTO) 1.5 (1.0-3.2); LYMPHOCYTES % 11.9 % (18.0-39.1); MEAN CORPUSCULAR HEMOGLOBIN 30.2 pg (28-32); MEAN CORPUSCULAR HGB CONC 35.6 g/dL (31-35); MEAN CORPUSCULAR VOLUME 84.6 fL (81-99); MONOCYTES # (AUTO) 1.3 (0.2-0.8); MONOCYTES % 10.1 % (4.4-11.3); NEUTROPHILS # (AUTO) 9.8 (2.1-6.9); NEUTROPHILS % 75.7 % (38.7-80.0); PLATELET COUNT 274 x10e3/uL (140-360); RED BLOOD COUNT 3.58 x10e6/uL (4.3-5.7); RED CELL DISTRIBUTION WIDTH 13.2 % (11.7-14.4)
[2017-05-02 13:12] LABS: ANION GAP 15.8 mmol/L (8-16); BLOOD UREA NITROGEN 8 mg/dL (7-26); BUN/CREATININE RATIO 10 (6-25); CALCIUM 9.7 mg/dL (8.4-10.2); CARBON DIOXIDE 22 mmol/L (22-29); CHLORIDE 92 mmol/L (98-107); CREATININE, SERUM 0.77 mg/dL (0.72-1.25); EST GLOMERULAR FILTRATION RATE > 60 ML/MIN (60-); GLUCOSE 110 mg/dL (74-118); POTASSIUM 4.8 mmol/L (3.5-5.1); SODIUM 125 mmol/L (136-145)
[~2017-05-03] VITALS: Ht 172.7 cm; Wt 71.2 kg
[~2017-05-03 06:28] MED LIST: AMARYL2 MG PO; ASPIRIN EC81 MG PO; ATORVASTATIN CA20 MG PO; BACITRACIN 50,000 UNIT VIAL ONE; BUPIVACAINE HCL 0.5% INJ 30 ML VIAL INJ ONE; CLINDAMYCIN HC150 MG PO; CLINDAMYCIN HC300 MG PO; CLOTRIMAZOLE-BE15 GM TOP; COMPETE1 EACH PO; COREG12.5 MG PO; DEXAMETHASONE SOD PHOS INJ 4 MG/ML VIAL ONE; ESIDRIX25 MG PO; GLIMEPIRIDE2 MG PO; HYDRALAZINE HCL25 MG PO; LOSARTAN POTAS100 MG PO; MAGNESIUM OXID400 MG PO; NIFEDIPINE ER30 M1 PO; OS-CAL 500+D T1 EACH PO; PLAVIX75 MG PO; PREDNISONE10 MG PO; PROBIOTIC & AC1 EACH PO; SILVASORB480 ML TP; SODIUM CHLORIDE 0.9% 1000ML 1,000 ML ONE; TEMAZEPAM15 MG PO; ULTRAM50 MG PO; VITAMIN C500 M2 PO; VITAMIN D31000 UNIT PO; ZINC SULFATE220 MG PO
[2017-05-03] MEDS ORDERED: CLINDAMYCIN PHOS 900MG/ D5W 50 50 ML IV ONE (06:43)
--- NOTE | 2017-05-03 11:45 | Operative Report ---
DATE OF PROCEDURE: May 03, 2017 PREOPERATIVE DIAGNOSIS: Right foot gangrene. POSTOPERATIVE DIAGNOSES: Right foot gangrene. PLANNED PROCEDURE: Right foot transmetatarsal amputation,. SURGEON: Dr. Delroy DPM CERTIFIED MEDICAL ASST: Janey Schwartz DPM ANESTHESIA: General with a postoperative block consisting of 20 mL of 0.5% Marcaine plain. HEMOSTASIS: Pneumatic Esmarch tourniquet applied to the right foot for approximately 30 minutes. MATERIALS: 3-0 nylon. ESTIMATED BLOOD LOSS: Less than 10 mL. PATHOLOGY: Forefoot sent for gross specimen.. PROCEDURE NOTE: Patient was seen in the preoperative waiting where the correct procedure and site was identified. The patient was brought to the operating room and placed on the operating table in the supine position. General anesthesia was initiated at this time. The right foot and ankle was then scrubbed, prepped and draped in the usual aseptic manner. The right foot, ankle and leg was exsanguinated with an Esmarch bandage and an Esmarch tourniquet was applied for approximately 30 minutes. Attention was directed to the distal aspect of the patient's right forefoot where gangrenous changes are noted to digits 2 and 3, as well as the distal aspect of digit 1. The decision was made to proceed with a transmetatarsal amputation. Utilizing two large 11-12 cm converging semi-elliptical incisions in a fishmouth fashion, the procedure was started. The incision was carried down directly to the level of bone. At this time, the metatarsophalangeal joints were easily identified and they were grasped distally with a towel clamp, and the digits were disarticulated at the level of metatarsophalangeal joints and passed off to the back table. Next, utilizing a sagittal saw, 5 osteotomies were performed in metatarsals 1-5 with the angled dorsal distal to plantar proximal. They were then smoothed to avoid any sharp edges with a rongeur and a rasp. The wound was then flushed with copious amounts of sterile saline mixed with Bacitracin. All wound edges were prepped for closure by debulking fat and removing necrotic and devitalized tissue, as well as removing all dog ears. The wound was then reapproximated utilizing simple interrupted sutures with 3-0 nylon. Incision site was then dressed with Adaptic, Betadine-soaked 4 x 4's, Kerciarra and an Daniel wrap. Prior to wound closure per crepe sole wire brusher protocol, one TLS drain was placed. The patient was then transferred to the postoperative recovery room with vital signs stable and vascular status intact. Patient was monitored there for a short period time before being readmitted for postoperative monitoring, pain control and IV antibiotics. The podiatry service will continue to monitor as an inpatient. Job#: [id number] RIP
[2017-05-03] MEDS ORDERED: CLINDAMYCIN 600MG/D5W 50ML 50 ML IV SCH (14:00)
[2017-05-03 14:13] VITALS: BP 183/79
[2017-05-03] MEDS ORDERED: FENTANYL CITRATE/PF 100MCG/2 ML INJ ONE (14:21)
[2017-05-03 14:46] VITALS: BP 183/79
[2017-05-03] MEDS: CLINDAMYCIN 600MG/D5W 50ML 50 ML IV SCH ×2 (14:46→22:43)
[2017-05-03 14:49] VITALS: BP 183/79
[2017-05-03 15:14] VITALS: BP 166/75
[2017-05-03] MEDS ORDERED: TEMAZEPAM15 MG PO (16:08)
[2017-05-03] MEDS ORDERED: DEXTROSE 50% SYRINGE 50 ML IV PRN (16:15)
[2017-05-03] MEDS: GLIMEPIRIDE 2 MG TAB PO SCH (16:58)
[2017-05-03] MEDS: INSULIN REGULAR, HUMAN 100 UNIT/1 ML 3ML VIAL SQ SCH ×2 (16:58→22:17)
[2017-05-03] MEDS ORDERED: EPHEDRINE SULFATE INJ 50 MG/10 ML SYR ONE (17:52)
[2017-05-03] MEDS ORDERED: SEVOFLURANE INHAL SOLN 250 ML PEN BTL ONE (17:52)
[2017-05-03] MEDS ORDERED: PROPOFOL IV EMULSION 10 MG/ML 20 ML VIAL ONE (17:52)
[2017-05-03] MEDS ORDERED: LIDOCAINE HCL 2% LOCAL INJ 5 ML SDV VIAL INJ ONE (17:52)
[2017-05-03] MEDS ORDERED: ONDANSETRON HCL INJ 2 MG/ML VIAL ONE (17:52)
[2017-05-03] MEDS ORDERED: DEXAMETHASONE SOD PHOS INJ 4 MG/ML VIAL ONE (17:52)
[2017-05-03] MEDS: HYDROCODONE/APAP 5MG-325MG TAB PO PRN (18:26)
[2017-05-03] MEDS ORDERED: LOSARTAN POTASSIUM 100 MG TAB PO SCH (21:00)
[2017-05-03] MEDS ORDERED: TEMAZEPAM 15 MG CAP PO SCH (21:00)
[2017-05-03] MEDS ORDERED: ATORVASTATIN 20 MG TAB PO SCH (21:00)
[2017-05-03 22:58] VITALS: BP 178/76
[2017-05-03 22:59] VITALS: BP 178/76
[2017-05-04 00:46] VITALS: BP 136/63
[2017-05-04 04:04] VITALS: BP 184/73
[2017-05-04] MEDS: CLINDAMYCIN 600MG/D5W 50ML 50 ML IV SCH ×2 (06:13→13:29)
[2017-05-04] MEDS: INSULIN REGULAR, HUMAN 100 UNIT/1 ML 3ML VIAL SQ SCH ×3 (07:30→16:26)
[2017-05-04] MEDS: GLIMEPIRIDE 2 MG TAB PO SCH ×2 (08:14→16:32)
[2017-05-04 08:15] VITALS: BP 188/82
[2017-05-04] MEDS: METOPROLOL SUCCINATE 25 MG TAB XL PO SCH ×2 (08:15→16:33)
[2017-05-04 08:16] VITALS: BP 188/82
[2017-05-04] MEDS ORDERED: CHOLECALCIFEROL 1,000 UNIT TAB PO SCH (09:00)
[2017-05-04] MEDS ORDERED: LOVENOX40 MG/0.4 SC (11:10)
[2017-05-04] MEDS ORDERED: HYDRALAZIN20 MG/1 ML IV (11:10)
[2017-05-04] MEDS ORDERED: TOPROL XL25 MG PO (11:10)
[2017-05-04] MEDS ORDERED: ASPIRIN ENTERI325 MG PO (11:10)
[2017-05-04] MEDS ORDERED: HYDROCODON-ACE1 EA11 PO (11:10)
[2017-05-04] MEDS ORDERED: DEXTROSE 50%-WA50 M1 IV (11:10)
[2017-05-04] MEDS ORDERED: FAMOTIDINE20 MG PO (11:10)
[2017-05-04] MEDS ORDERED: HUMULIN R100 UNIT/2 SQ (11:10)
[2017-05-04] MEDS ORDERED: HYDRALAZINE HCL 20 MG/ML VIAL IV PRN (11:15)
[2017-05-04 11:46] VITALS: BP 160/60
--- NOTE | 2017-05-04 11:59 | History and Physical ---
SHORTSTAY SUMMARY PRIMARY CARE PROVIDER: Dr. Rony Schmidt. ADMITTING DIAGNOSES 1. Trinh grade 4 diabetic foot ulcer with gangrene, right forefoot, status post right transmetatarsal amputation. 2. Hypertension. 3. Type 2 diabetes with peripheral arterial disease. DISCHARGE DIAGNOSES 1. Trinh grade 4 diabetic foot ulcer with gangrene, right forefoot, status post right transmetatarsal amputation. 2. Hypertension. 3. Type 2 diabetes with peripheral arterial disease. HISTORY OF PRESENT ILLNESS: Mr. Edwards is a 72-year-old gentleman who was recently admitted to the hospital approximately a month ago for diabetic foot ulcer on the right foot, basically his toes. He had some wound care and some antibiotics and has been attempting to do wound care as an outpatient. His wounds have progressed and his senior product development engineer performed elective transmetatarsal amputation of the right foot and admitted to the hospital postoperatively for wound care, IV antibiotics , and eventual transfer to [facility] long-term acute care. REVIEW OF SYSTEMS: He denies fever, chills, or weight loss. He denies chest pain or palpitations. He denies shortness of breath, wheezing, or cough. He denies abdominal pain, nausea, vomiting, melena. He denies dysuria or flank pain. He denies rash or pruritus. He denies bleeding or bruising. He denies joint pain or swelling. He denies headache, vertigo, or loss of consciousness. He denies depression, agitation, homicide, or suicidal ideation. PAST MEDICAL HISTORY: Significant for longstanding hypertension, type 2 diabetes, peripheral arterial disease, and previous stroke with minimal residual. HOME MEDICATIONS 1. Lipitor 40 mg at bedtime. 2. Vitamin D 1000 units daily. 3. Amaryl 2 mg twice daily. 4. Losartan 100 mg at bedtime. 5. Temazepam 15 mg at bedtime. He has a history of a fem-pop bypass on the right leg a few years ago. He has had a cholecystectomy and he had a melanoma removed from one of his ears. HE HAS NO KNOWN DRUG ALLERGIES. FAMILY HISTORY: Remarkable for hypertension and diabetes. SOCIAL HISTORY: The patient is . Here with his . He is . Maori is his primary language. He does not smoke, drink, or use illegal drugs and he is generally independently functioning. PHYSICAL EXAM PSYCHIATRIC: He is alert and oriented times 3 with normal mood and affect. CONSTITUTIONAL: He has a normal body habitus. Is in no acute distress. VITAL SIGNS: Blood pressure 188/82. Pulse 98 and regular. Respiratory rate 16. O2 sat 99%. HEENT: Head is atraumatic. His eyes are anicteric with clear conjunctivae. Ears and nares are without erythema or discharge. Oropharynx is clear. NECK: Is supple with no mass or thyromegaly. LYMPHATIC SYSTEM: He has no palpable cervical, axillary, or inguinal adenopathy. CARDIOVASCULAR: His heart has a regular rate rhythm without murmur or extra heart sounds. He has no carotid bruit. His right foot is in a surgical dressing. He has no edema of the left foot. RESPIRATORY: Lungs are clear to auscultation and percussion with normal respiratory effort. GASTROINTESTINAL: His abdomen is soft without organomegaly, masses, or tenderness. He has normal bowel sounds present. CUTANEOUS: His skin is warm and dry to the touch with no rash or skin breakdown. MUSCULOSKELETAL: His joints are in normal alignment without erythema or swelling. He has no calf tenderness. NEUROLOGIC: Exam is nonfocal with intact cranial nerves and no motor or sensory deficits. DIAGNOSTIC STUDIES: CBC shows a white count of 12.8 with 76% neutrophils. Hemoglobin 10.8, hematocrit 30.3, and platelet count 274 thousand. His chemistry shows normal electrolytes. CO2 22. Creatinine 0.77. BUN 8 for a normal GFR. Glucose is 110. IMPRESSION AND PLAN 1. Trinh grade 4 diabetic foot ulcer with gangrene, right forefoot, status post right transmetatarsal amputation. The patient will resume wound care only by podiatry in this postsurgical patient. Will continue IV clindamycin for now, pending culture results. 2. Hypertension. Will continue losartan and Toprol with p.r.n. IV hydralazine. 3. Type 2 diabetes. Will continue Amaryl and sliding scale insulin. 4. For prophylaxis, the patient will be placed on Pepcid for GI prophylaxis, and Lovenox for DVT prophylaxis. HOSPITAL COURSE: The patient was admitted to the floor overnight postoperatively. Arrangements were made for the patient to be transferred to [facility] for long-term IV antibiotics and wound care. The patient will continue with his current orders and will be under the care of myself at [facility] as well. Job#: [id number] [place]
[2017-05-04] MEDS: FAMOTIDINE 20 MG TAB PO SCH ×2 (12:27→16:32)
[2017-05-04] MEDS: HYDROCODONE/APAP 5MG-325MG TAB PO PRN (15:02)
[2017-05-04 15:51] VITALS: BP 171/71
[2017-05-04] MEDS ORDERED: ENOXAPARIN SOD INJ 40 MG/0.4 ML SYR SC SCH (17:00)
[2017-05-05] MEDS ORDERED: ASPIRIN 81 MG CHEW TAB PO SCH (09:00)
[2017-05-05] MEDS ORDERED: ASPIRIN 325 MG TAB EC PO SCH (09:00)
== END 2017-05-04 19:29 ==
LOC: OR 06:28 → IMCU 11:54
PROVIDERS: ADMIT Internal Medicine; ATTEND Internal Medicine
DX: E11.621 Type 2 diabetes mellitus with foot ulcer (principal); E11.52 Type 2 diabetes mellitus with diabetic peripheral angiopathy with gangrene; I10 Essential (primary) hypertension
CPT/HCPCS: 28805; 36415 ×3; 80048; 82948 ×2; 85025; 88307; 88311; 96372; 97161; 97530 ×2; G0378 ×2; J0360; J1100; J1650; J2001; J2405; J7030; 88305